=== PATIENT | male | born 1965 | race Caucasian/White ===

== ENCOUNTER → 2018-07-31 | Outpatient (CLI) | payer BC ==
--- NOTE | 2018-07-31 16:48 | RAD ---
EXAM: Pelvic sonogram. HISTORY: Palpable lump. TECHNIQUE: Sonographic imaging of the right lower back at the site of palpable concern was performed. COMPARISON: None. FINDINGS: There is a circumscribed solid nonvascular lesion within the right back soft tissues measuring 7.8 x 4.1 x 2.4 cm, the appearance of which favors a lipoma. This corresponds with the site of palpable concern. IMPRESSION: Suspected 7.8 mm lipoma within the inferior right back at the site of palpable concern. Continued clinical follow-up of palpable abnormalities is recommended. Electronically signed by: Farrah Mathur MD (07/31/2018 4:46 PM) [facility]
== END | disposition home or self-care (01) ==
LOC: US 13:34
PROVIDERS: ATTEND Physician Assistant
DX: D17.79 Benign lipomatous neoplasm of other sites (principal)
CPT/HCPCS: 76881